=== PATIENT | male | born 1950 | race African-American/Black ===

== ENCOUNTER 2018-05-28 12:56 | Emergency (ER) | payer MEDICARE, MEDICAID ==
[~2018-05-28] VITALS: Ht 167.6 cm; Wt 60.5 kg
[~2018-05-28 12:56] MED LIST: QUET400T PO; TRAZ150T62 PO; ZOLP10TA5 PO
[2018-05-28 13:03] VITALS: BP 167/66
== END 2018-05-28 14:24 | disposition home or self-care (01) ==
LOC: ED 14:02
DX: I10 Essential (primary) hypertension (principal); Z76.0 Encounter for issue of repeat prescription; F41.9 Anxiety disorder, unspecified; F39 Unspecified mood [affective] disorder; K21.9 Gastro-esophageal reflux disease without esophagitis
CPT/HCPCS: 99283